=== PATIENT | female | born 1935 | race Caucasian/White ===

== ENCOUNTER 2016-12-29 20:45 | Emergency (ER) | payer MEDICARE, MEDICAID ==
[~2016-12-29] VITALS: Ht 162.6 cm; Wt 81.6 kg
[~2016-12-29 20:45] MED LIST: ALEN70TA3 PO; ASPI81TA2 PO; DONE5TAB3 PO; HYDR12.55 PO; LOSA50TA3 PO; SIMV40TA2 PO; [UNRECOGNIZED DRUG - CODE] PO
--- NOTE | 2016-12-29 20:59 | NUR ---
Patient to ER bed 03 to gown for evaluation. Side rails up. Report given to Gilmer
[2016-12-29 21:00] VITALS: BP 189/81; PULSE 79; RESP 18; TEMP 98.3; O2SAT 98
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
--- NOTE | 2016-12-29 21:40 | NUR ---
ER at bedside examining patient.
--- NOTE | 2016-12-29 23:00 | NUR ---
LACERATION REPAIR WITH ASHLEE DONE, TOLERATED PROCEEDURE WELL.
--- NOTE | 2016-12-30 00:30 | NUR ---
PT TO BE DISCHARGED BACK TO HER SNF. ARRANGING TRANSPORT.
--- NOTE | 2016-12-30 01:25 | NUR ---
Patient given written and verbal discharge instructions and verbalizes understanding. ER MD discussed with patient the results and treatment provided. Patient in stable condition. ID arm band removed. Rx of MOTRIN given. Patient educated on pain management and to follow up with PMD. Pain Scale 0/10. Opportunity for questions provided and answered.
[2016-12-30 01:47] VITALS: BP 153/67; PULSE 79; RESP 18; TEMP 98.3; O2SAT 98
== END 2016-12-30 01:47 | disposition home or self-care (01) ==
LOC: SED 20:45
DX: S01.01XA Laceration without foreign body of scalp, initial encounter (principal); I10 Essential (primary) hypertension; F03.90 Unspecified dementia, unspecified severity, without behavioral disturbance, psychotic disturbance, mood disturbance, and anxiety; Z79.899 Other long term (current) drug therapy; W01.10XA Fall on same level from slipping, tripping and stumbling with subsequent striking against unspecified object, initial encounter; Y93.89 Activity, other specified; Y92.89 Other specified places as the place of occurrence of the external cause; Y99.8 Other external cause status
CPT/HCPCS: 99283